=== PATIENT | female | born 1955 | race Two or more races ===

== ENCOUNTER 2023-01-18 05:00 | Day surgery (SDC) | payer OTHER | END 2023-01-18 12:05 | disposition home or self-care (01) | LOC: CIR.AMB 05:00 | PROVIDERS: ATTEND Orthopaedic Surgery | DX: M75.121 Complete rotator cuff tear or rupture of right shoulder, not specified as traumatic (principal); M75.21 Bicipital tendinitis, right shoulder; Z20.822 Contact with and (suspected) exposure to COVID-19 ==

== ENCOUNTER 2025-03-04 07:30 | Inpatient (IN) | payer OTHER ==
[~2025-03-04] VITALS: Ht 147.3 cm; Wt 54.4 kg
[2025-03-04] MEDS ORDERED: ASA81 MG PO (09:01)
[2025-03-04 09:08] VITALS: BP 139/80
[2025-03-04 09:19] LABS: HEMATOCRIT 40.9 % (36.0-45.00); HEMOGLOBIN 13.4 g/dL (12.0-15.00); MEAN CELL VOLUME 96.8 fL (80.00-100.00); MEAN CORPUSCULAR HEMOGLOBIN 31.8 pg (27.00-32.0); MEAN CORPUSCULAR HGB CONC 32.8 g/dl (32.0-36.0); PLATELET COUNT 216 K/uL (150-450); RED BLOOD COUNT 4.22 M/uL (4.00-6.00); RED CELL DISTRIBUTION WIDTH 13.5 % (11.5-14.5)
[2025-03-04 09:38] LABS: INR 0.95; PARTIAL THROMBOPLASTIN TIME 30.8 SECONDS (22.0-34.0); PROTHROMBIN TIME 10.4 SECONDS (9.0-11.5)
[2025-03-04 10:04] LABS: ALBUMIN 4.2 gm/dL (3.4-5.0); BILIRUBIN TOTAL 0.73 mg/dL (0.3-1.2); CALCIUM 9.4 mg/dL (8.5-10.1); CREATININE SERUM 0.55 mg/dL (0.55-1.02); GFR 108.96; GLOBULINA 3.1 G/DL (2.4-3.5); POTASSIUM 4.72 mEq/L (3.5-5.1); TOTAL PROTEIN 7.3 gm/dL (6.4-8.2)
[2025-03-04 10:06] LABS: PH,URINE 7.5 (5.0-8.0); URINE APPEARANCE Clear; URINE BILIRRUBIN Negative (NEGATIVE); URINE BLOOD Negative; URINE COLOR Yellow; URINE GLUCOSE Negative (NEGATIVE); URINE KETONE 15 (NEGATIVE); URINE LEUKOCYTE Negative; URINE NITRATE Negative; URINE PROTEIN Negative (NEGATIVE)
[2025-03-04 10:10] LABS: URINE BACTERIA 41.5 uL (0.0-1933); URINE RBC 4.1 uL (0.0-20.8); URINE WBC 3.7 uL (0.0-23.2)
[2025-03-04 10:17] LABS: URINE CAST 0.14 uL (0.0-1.40); URINE EPITHELIAL CELLS 0.9 uL (0.0-38.8)
[2025-03-16] MEDS ORDERED: CEFAZOLIN SODIUM 1,000 MG VIAL ONE (09:23)
[2025-03-16] MEDS ORDERED: BUPIVACAINE HCL/MPF 0.5% 30ML VIAL ONE (10:53)
[2025-03-16] MEDS ORDERED: ISOPROPYL ALCOHOL 30 ML OUNCE TOP ONE (10:53)
[2025-03-16] MEDS ORDERED: LIDOCAINE HCL 1%/EPINEPHRINE 20ML VIAL IJ ONE (10:53)
[2025-03-16] MEDS ORDERED: TRANEXAMIC ACID 100MG/1ML (1000MG) AMPUL IV ONE (10:53)
[2025-03-16] MEDS ORDERED: METHYLPREDNISOLONE ACETATE 80 MG/ML VIAL ONE (12:18)
[2025-03-16] MEDS ORDERED: KETOROLAC TROMETHAMINE 60 MG VIAL IM ONE (12:18)
[2025-03-16] MEDS ORDERED: SODIUM CHLORIDE 0.45 % 1,000 ML IV SCH (14:45)
[2025-03-16] MEDS ORDERED: MORPHINE SULFATE 2 MG/ML CARTRIDGE IV ONE ×2 (14:45→16:20)
[2025-03-16] MEDS ORDERED: ONDANSETRON HCL 2 MG/ML VIAL IV PRN (14:45)
[2025-03-16] MEDS ORDERED: MORPHINE SULFATE 4 MG/ML VIAL IV PRN (14:45)
[2025-03-16] MEDS ORDERED: GENTAMICIN SULFATE 40 MG/ML VIAL ONE (16:47)
[2025-03-16] MEDS ORDERED: GENTAMICIN SULFATE 40 MG/ML VIAL IV SCH (17:00)
[2025-03-16 17:22] VITALS: BP 93/58; O2SAT 97
[2025-03-16 17:23] LABS: HEMATOCRIT 32.3 % (36.0-45.00); HEMOGLOBIN 10.9 g/dL (12.0-15.00); RED BLOOD COUNT 3.32 M/uL (4.00-6.00)
[2025-03-16] MEDS ORDERED: CEFAZOLIN SODIUM 1,000 MG VIAL IV SCH (18:00)
[2025-03-16 23:55] VITALS: BP 113/74; O2SAT 100
[2025-03-17] MEDS ORDERED: IRON FUM,PS/FOLIC/BCOMP,C NO.9 1 CAP CAPSULE PO SCH (09:00)
[2025-03-17] MEDS ORDERED: BACITRACIN 28.35 GM OINT.TUBE TOP SCH (09:00)
[2025-03-17] MEDS ORDERED: SENNA/DOCUSATE SODIUM 1 TAB TABLET PO SCH (09:00)
[2025-03-17] MEDS ORDERED: RIVAROXABAN 10 MG TAB PO SCH (09:00)
[2025-03-18 07:01] LABS: HEMATOCRIT 30.2 % (36.0-45.00); HEMOGLOBIN 10.7 g/dL (12.0-15.00); MEAN CELL VOLUME 95.2 fL (80.00-100.00); MEAN CORPUSCULAR HEMOGLOBIN 33.6 pg (27.00-32.0); MEAN CORPUSCULAR HGB CONC 35.2 g/dl (32.0-36.0); PLATELET COUNT 165 K/uL (150-450); RED BLOOD COUNT 3.18 M/uL (4.00-6.00); RED CELL DISTRIBUTION WIDTH 13.1 % (11.5-14.5)
[2025-03-18] MEDS ORDERED: XARELTO10 MG PO (07:42)
[2025-03-18] MEDS ORDERED: INTEGRA PLUS C1 EACH PO (07:42)
[2025-03-18] MEDS ORDERED: BACTRIM DS TAB1 EACH PO (07:44)
[2025-03-18] MEDS ORDERED: TRAM1TAB98 PO (07:44)
[2025-03-18] MEDS ORDERED: SULFAMETHOXAZOLE/TRIMETHOPRIM DS 1 TAB PO SCH ×2 (12:33→17:00)
[2025-03-18] MEDS ORDERED: ACETAMINOPHEN WITH CODEINE 1 UDTAB TABLET PO PRN (12:45)
[2025-03-18 16:32] VITALS: BP 119/63; O2SAT 97
== END 2025-03-18 18:06 | disposition home or self-care (01) | DRG 470 ==
LOC: O/R 03-16 06:31 → SURG 03-16 06:31 → SURH 03-16 07:30 → SURG 03-16 12:48
PROVIDERS: ADMIT Orthopaedic Surgery Sports Medicine; ATTEND Orthopaedic Surgery Sports Medicine
PROC: 0SR90J9 Replacement of Right Hip Joint with Synthetic Substitute, Cemented, Open Approach (ICD-10-PCS; principal; 2025-03-16 09:30)
DX: M16.11 Unilateral primary osteoarthritis, right hip (principal)